=== PATIENT | female | born 1965 | race Caucasian/White ===

== ENCOUNTER 2020-12-28 17:53 | Emergency (ER) | payer MEDICAID ==
[2020-12-28 18:13] VITALS: BP 153/79; PULSE 95; O2SAT 98
--- NOTE | 2020-12-28 19:04 | ERPHSYRPT ---
- History of Present Illness Time Seen by Provider: 12/28/20 18:15 Source: patient Exam Limitations: no limitations Patient Subjective Stated Complaint: R earache Triage Nursing Assessment: pt to ED c/o R earache x 4 days. reports pain radiates through R side neck and jaw. denies injury to area. very tender to palp. rates 4/10 at rest and up to 10/10 when eating/touching area. Physician History: Is a 55-year-old white female who presents with pain in the right mandible located about the angle been sore for 4 to 5 days she denies any fever chills or sweats she denies any actual ear pain the pain is burning throbbing she has extremely poor dentition and pulls her own teeth and it appears that she has few teeth left. Timing/Duration: abrupt onset Severity: moderate ENT Location: mouth, dental Prearrival Treatment: no prearrival treatment Modifying Factors: Improves With: nothing Associated Symptoms: denies symptoms Hx Tetanus, Diphtheria Vaccination/Date Given: Yes Hx Influenza Vaccination/Date Given: Yes Hx Pneumococcal Vaccination/Date Given: No Immunizations Up to Date: Yes Travel Risk - International Travel Have you traveled outside of the country in past 3 weeks: No - Coronavirus Screening Are you exhibiting any of the following symptoms?: No Close contact with a COVID-19 positive Pt in past 14-21 Days: No - Vaccine Status Have you recieved a Covid-19 vaccination: No - Review of Systems Constitutional: No Fever, No Chills Eyes: No Symptoms Ears, Nose, & Throat: No Symptoms, Loose Teeth, Other (Poor dentition) Respiratory: No Cough, No Dyspnea Cardiac: No Chest Pain, No Edema, No Syncope Abdominal/Gastrointestinal: No Abdominal Pain, No Nausea, No Vomiting, No Diarrhea Genitourinary Symptoms: No Dysuria Musculoskeletal: No Back Pain, No Neck Pain Skin: No Rash Neurological: No Dizziness, No Focal Weakness, No Sensory Changes Psychological: No Symptoms Endocrine: No Symptoms All Other Systems: Reviewed and Negative - Past Medical History Pertinent Past Medical History: Yes Other Medical History: 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 no problems since. - Past Surgical History Past Surgical History: Yes Gastrointestinal: Hernia Repair Female Surgical History: Section Other Surgical History: skin graph at - Social History Smoking Status: Current every day smoker How long have you smoked: years Exposure to second hand smoke: Yes Drug Use: none Patient Lives Alone: Yes - Female History Hx Now: No - Nursing Vital Signs Nursing Vital Signs: Initial Vital Signs Temperature 97.5 F 12/28/20 18:02 Pulse Rate 95 H 12/28/20 18:02 Respiratory Rate 20 12/28/20 18:02 Blood Pressure 153/79 12/28/20 18:02 O2 Sat by Pulse Oximetry 98 12/28/20 18:02 Pain Scale Pain Intensity 4 - Physical Exam General Appearance: mild distress, alert Eye Exam: bilateral eye: normal inspection, PERRL, EOMI Ear Exam: bilateral ear: auricle normal, canal normal, TM normal Nasal Exam: normal inspection Throat Exam: pharynx normal, dental tenderness, mandibular swelling (angle of the right side of the mandible), moist mucus membranes, No tonsillar exudate Neck Exam: supple Cardiovascular/Respiratory Exam: normal breath sounds, regular rate/rhythm Abdominal Exam: non-tender, soft Neurologic Exam: alert, oriented x 3, sensation nml, No motor deficits Skin Exam: normal color, warm, dry SpO2 Interpretation: normal SpO2: 98 O2 Delivery: Room Air - Radiology Exams Other X-ray Interpretation: Interpreted by me, Other (Mandibular x-ray showed retained dental roots few teeth and what appears to be lucencies that could be a bscesses.) Ordered Tests: Active Orders 24 hr Category Date Time Status MANDIBLE (MINIMUM 4 VIEWS) Stat Exams 12/28/20 18:55 Taken - Progress Progress: unchanged - Departure Departure Disposition: Home Clinical Impression: Dental abscess Condition: Stable Critical Care Time: No Referrals: DOCTOR,NO FAMILY [Primary Care Provider] - Instructions: Dental Pain (DC) Prescriptions: clindamycin HCL [Cleocin HCl] 300 mg PO TID 7 Days #21 capsule
--- NOTE | 2020-12-29 10:11 | XRAY ---
Exam: 4 view mandible series from 12/28/2020. Comparison: None. Indication: Nose piercing. Findings: 5 images of the mandible were obtained including oblique images and Ez images with varying angulation. I see no acute fracture or bone destructive process within the mandible. A round metallic piercing is seen on the right adjacent to the nose. Many of the patient's teeth are missing. Significant dental and periodontal disease is suspected. The zygomatic arches appear grossly intact. The temporomandibular joint spaces appear essentially unremarkable. Impression: 1. No acute mandible fracture or other significant mandible lesion is seen. 2. Many teeth are missing, and I suspect significant dental and periodontal disease. Correlate clinically. 3. An apparent nasal piercing is seen on the right.
== END 2020-12-28 19:08 | disposition home or self-care (01) ==
LOC: ED 17:53
DX: K04.7 Periapical abscess without sinus (principal)
CPT/HCPCS: 70110; 99283

== ENCOUNTER 2021-01-05 11:03 | Emergency (ER) | payer MEDICAID ==
[2021-01-05 11:33] VITALS: PULSE 80; O2SAT 98
--- NOTE | 2021-01-05 11:53 | ERPHSYRPT ---
- History of Present Illness Time Seen by Provider: 01/05/21 11:35 Source: patient Exam Limitations: no limitations Patient Subjective Stated Complaint: PT states "I was here in the er about 8 days ago and they took x rays and gave me antibiotics saying it was bacterial in fection and I took it for the 7 days and it did absolutely nothing." Triage Nursing Assessment: Pt presented alert and oriented X 3, skin pwd. Pt has red skin under her right ear, tenderness to her right jaw. Physician History: Patient is a 55-year-old female presents to our ED with complaints of ear pain. Patient was in our emergency department about 8 days ago. Patient was treated with antibiotics. Patient states that her ear pain has not improved. Patient seems frustrated. Patient states pain is worse when she puts something in her mouth. However patient states that she is able to chew without any discomfort. Patient has severe carious teeth. No trauma no fever. Patient believes the pain is coming from her ear. Patient area exam is essentially nonremarkable. Will refer patient to ENT. Timing/Duration: week(s) Severity: moderate Modifying Factors: Improves With: other (Patient states symptoms worse when she puts food in her mouth.) Associated Symptoms: No nausea, No vomiting, No abdominal pain, No shortness of breath, No heartburn, No diaphoresis, No cough, No chills, No chest pain, No fever, No headaches, No loss of appetite, No syncope, No seizure Allergies/Adverse Reactions: No Known Drug Allergies Allergy (Verified 01/05/21 11:33) Home Medications: No Reportable Medications [No Reported Medications] 01/05/21 [History] Hx Tetanus, Diphtheria Vaccination/Date Given: Yes Hx Influenza Vaccination/Date Given: No Hx Pneumococcal Vaccination/Date Given: No Immunizations Up to Date: Yes Travel Risk - International Travel Have you traveled outside of the country in past 3 weeks: No - Coronavirus Screening Are you exhibiting any of the following symptoms?: No Close contact with a COVID-19 positive Pt in past 14-21 Days: No - Vaccine Status Have you recieved a Covid-19 vaccination: No - Review of Systems Constitutional: No Symptoms, No Fever, No Chills Eyes: No Symptoms Ears, Nose, & Throat: No Symptoms Respiratory: No Symptoms, No Cough, No Dyspnea Cardiac: No Symptoms, No Chest Pain, No Edema, No Syncope Abdominal/Gastrointestinal: No Symptoms, No Abdominal Pain, No Nausea, No Vomiting, No Diarrhea Genitourinary Symptoms: No Symptoms, No Dysuria Musculoskeletal: No Symptoms, No Back Pain, No Neck Pain Skin: No Symptoms, No Rash Neurological: No Symptoms, No Dizziness, No Focal Weakness, No Sensory Changes Psychological: No Symptoms Endocrine: No Symptoms Hematologic/Lymphatic: No Symptoms Immunological/Allergic: No Symptoms All Other Systems: Reviewed and Negative - Past Medical History Pertinent Past Medical History: Yes Other Medical History: 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 no problems since. - Past Surgical History Past Surgical History: Yes Gastrointestinal: Hernia Repair Female Surgical History: Section Other Surgical History: skin graph at - Social History Smoking Status: Current every day smoker How long have you smoked: years Exposure to second hand smoke: Yes Drug Use: none Patient Lives Alone: No - Female History Hx Now: No - Nursing Vital Signs Nursing Vital Signs: Initial Vital Signs Temperature 97.5 F 01/05/21 11:28 Pulse Rate 80 01/05/21 11:28 Respiratory Rate 20 01/05/21 11:28 Blood Pressure 173/90 01/05/21 11:28 O2 Sat by Pulse Oximetry 98 01/05/21 11:28 Pain Scale Pain Intensity [Right Jaw] 8 Pain Intensity 8 - Physical Exam General Appearance: no apparent distress, alert Eye Exam: PERRL/EOMI, eyes nml inspection Ears, Nose, Throat Exam: normal ENT inspection, TMs normal, pharynx normal, moist mucous membranes, other (Patient has some tenderness at the base of her right ear near the angle of the mandible.) Neck Exam: normal inspection, non-tender, supple, full range of motion Respiratory Exam: normal breath sounds, lungs clear, No respiratory distress Cardiovascular Exam: regular rate/rhythm, normal heart sounds, normal peripheral pulses Gastrointestinal/Abdomen Exam: soft, normal bowel sounds, No tenderness, No mass Back Exam: normal inspection, normal range of motion, No CVA tenderness, No vertebral tenderness Extremity Exam: normal inspection, normal range of motion, pelvis stable Neurologic Exam: alert, oriented x 3, cooperative, normal mood/affect, nml cerebellar function, nml station & gait, sensation nml, No motor deficits Skin Exam: normal color, warm, dry, No rash Lymphatic Exam: No adenopathy SpO2 Interpretation: normal SpO2: 98 O2 Delivery: Room Air - Course Nursing assessment & vital signs reviewed: Yes - Progress Progress: improved Progress Note: We will refer patient to ENT for further evaluation and treatment. Patient received Tylenol for pain control. 01/05/21 12:01 01/05/21 12:03 Counseled pt/family regarding: smoking cessation - Departure Departure Disposition: Home Clinical Impression: Ear pain, right Condition: Stable Critical Care Time: No Referrals: DOCTOR,NO FAMILY [Primary Care Provider] - NANCY MARRUFO MD [ACTIVE STAFF] - Additional Instructions: Discharge/Care Plan BOOKER JC was seen on 01/05/21 in the Emergency Room. The patient was counseled regarding Diagnosis,Lab results, Imaging studies, need for follow up and when to return to the Emergency Room. Prescriptions given: Discharge Note I have spoken with the patient and/or caregivers. I have explained the patient's condition, diagnosis and treatment plan based on the information available to me at this time. I have answered the patient's and/or caregiver's questions and addressed any concerns. The patient and/or caregivers have as good understanding of the patient's diagnosis, condition and treatment plan as can be expected at this point. The vital signs have been stable. The patient's condition is stable and appropriate for discharge from the emergency department. The patient will pursue further outpatient evaluation with the primary care physician or other designated or consulting physician as outlined in the discharge instructions. The patient and/or caregivers are agreeable to this plan of care and follow-up instructions have been explained in detail. The patient and/or caregivers have received these instruction. The patient/and or caregivers are aware that any significant change in condition or worsening of symptoms should prompt an immediate return to this or the closest emergency department or call 911.
[2021-01-05] MEDS ORDERED: TYLENOL 325 MG PO ONE (12:03)
[2021-01-05] MEDS ORDERED: TYLENOL 325 MG ONE (12:12)
[2021-01-05 12:29] VITALS: BP 168/70
== END 2021-01-05 12:55 | disposition home or self-care (01) ==
LOC: ED 11:03
DX: H92.01 Otalgia, right ear (principal)
CPT/HCPCS: 99283; A9270-GY

== ENCOUNTER 2023-07-05 19:44 | Emergency (ER) | payer OTHER | END 2023-07-05 20:27 | disposition left against medical advice (07) | LOC: ED 19:44 | DX: Z53.21 Procedure and treatment not carried out due to patient leaving prior to being seen by health care provider (principal) ==

== ENCOUNTER 2023-07-06 20:28 | Emergency (ER) | payer OTHER ==
[2023-07-06 21:15] VITALS: O2SAT 96
--- NOTE | 2023-07-06 21:15 | ERPHSYRPT ---
- History of Present Illness Time Seen by Provider: 07/06/23 21:11 Source: patient Exam Limitations: no limitations Physician History: Patient is a 57-year-old female presents to our ED for evaluation of a posterior neck, pedunculated mass that has been there "her whole life". The mass has recently began to change in color and sensitivity. Patient states that it is draining serosanguineous fluid. The area involvement is localized. No signs of infection. No fever. Patient has no other symptomology. Patient is a smoker. Patient that she is otherwise healthy. She voices no other complaints or concerns at this time. Portions of this note were created with voice recognition technology. There may be grammatical, spelling, punctuation or sound alike errors Timing/Duration: today Severity: mild Modifying Factors: Improves With: nothing Associated Symptoms: denies symptoms Allergies/Adverse Reactions: No Known Drug Allergies Allergy (Verified 07/06/23 20:56) Home Medications: No Reportable Medications [No Reported Medications] 01/05/21 [History] Hx Tetanus, Diphtheria Vaccination/Date Given: Yes Hx Influenza Vaccination/Date Given: No Hx Pneumococcal Vaccination/Date Given: No Travel Risk - Vaccine Status Have you recieved a Covid-19 vaccination: No - Review of Systems Constitutional: No Symptoms, No Fever, No Chills Eyes: No Symptoms Ears, Nose, & Throat: No Symptoms Respiratory: No Symptoms, No Cough, No Dyspnea Cardiac: No Symptoms, No Chest Pain, No Edema, No Syncope Abdominal/Gastrointestinal: No Symptoms, No Abdominal Pain, No Nausea, No Vomiting, No Diarrhea Genitourinary Symptoms: No Symptoms, No Dysuria Musculoskeletal: No Symptoms, No Back Pain, No Neck Pain Skin: No Symptoms, No Rash Neurological: No Symptoms, No Dizziness, No Focal Weakness, No Sensory Changes Psychological: No Symptoms Endocrine: No Symptoms Hematologic/Lymphatic: No Symptoms Immunological/Allergic: No Symptoms All Other Systems: Reviewed and Negative - Past Medical History Pertinent Past Medical History: Yes Other Medical History: 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 no problems since. - Past Surgical History Past Surgical History: Yes Gastrointestinal: Hernia Repair Female Surgical History: Section Other Surgical History: skin graph at - Social History Smoking Status: Current every day smoker How long have you smoked: years Exposure to second hand smoke: Yes Drug Use: none Patient Lives Alone: No - Physical Exam General Appearance: no apparent distress, alert Eye Exam: PERRL/EOMI, eyes nml inspection Ears, Nose, Throat Exam: normal ENT inspection, moist mucous membranes Neck Exam: normal inspection, non-tender, supple, full range of motion Respiratory Exam: normal breath sounds, lungs clear, airway intact, No respiratory distress Cardiovascular Exam: regular rate/rhythm, normal heart sounds, normal peripheral pulses Gastrointestinal/Abdomen Exam: soft, normal bowel sounds, No tenderness, No mass Back Exam: normal inspection, normal range of motion, No CVA tenderness, No vertebral tenderness Extremity Exam: normal inspection, normal range of motion, pelvis stable Neurologic Exam: alert, oriented x 3, cooperative, normal mood/affect, sensation nml, No motor deficits Skin Exam: normal color, warm, dry, No rash Lymphatic Exam: No adenopathy SpO2 Interpretation: normal SpO2: 96 O2 Delivery: Room Air - Course Nursing assessment & vital signs reviewed: Yes - Progress Progress: improved Progress Note: 57-year-old female presents to our ED with a chronic pedunculated mass hanging off of the skin of the posterior neck. Patient reports acute changes The mass is approximately 1 cm in diameter. It is cauliflower-like. No signs of infection. This will require a dermatologic or plastic surgery evaluation. Likely resection with subsequent pathology evaluation of the mass. Patient referred to dermatology clinic for further evaluation and treatment. No indication for further work-up at this time. Portions of this note were created with voice recognition technology. There may be grammatical, spelling, punctuation or sound alike errors Complexity of problems addressed is low acute uncomplicated No critical care time Complexity of data reviewed and analyzed is none. No specialized testing ordered. Diagnosis made based on history and physical exam Risk of complication and a risk of morbidity/mortality of patient management is low Vital stable. Time spent to discharge patient is approximately 10 minutes. Plan of care established via shared decision making. No social determinants of health present impede follow-up. Patient referred to dermatology clinic for follow-up Portions of this note were created with voice recognition technology. There may be grammatical, spelling, punctuation or sound alike errors 07/06/23 21:21 Counseled pt/family regarding: diagnosis, need for follow-up - Departure Departure Disposition: Home Clinical Impression: Skin lesion Condition: Stable Critical Care Time: No Referrals: CECILIA CRUZ NP [Primary Care Provider] - Follow up/PCP as directed SPIKE BISHOP NP [NON-STAFF PHY W/O PRIVILEGES] - Follow up/PCP as directed Additional Instructions: Discharge/Care Plan BOOKER JC was seen on 07/06/23 in the Emergency Room. The patient was counseled regarding Diagnosis,Lab results, Imaging studies, need for follow up and when to return to the Emergency Room. Prescriptions given: Discharge Note I have spoken with the patient and/or caregivers. I have explained the patient's condition, diagnosis and treatment plan based on the information available to me at this time. I have answered the patient's and/or caregiver's questions and addressed any concerns. The patient and/or caregivers have as good understanding of the patient's diagnosis, condition and treatment plan as can be expected at this point. The vital signs have been stable. The patient's condition is stable and appropriate for discharge from the emergency department. The patient will pursue further outpatient evaluation with the primary care physician or other designated or consulting physician as outlined in the discharge instructions. The patient and/or caregivers are agreeable to this plan of care and follow-up instructions have been explained in detail. The patient and/or caregivers have received these instruction. The patient/and or caregivers are aware that any significant change in condition or worsening of symptoms should prompt an immediate return to this or the closest emergency department or call 911.
[2023-07-06 21:18] VITALS: RESP 18; TEMP 97.3
[2023-07-06 21:19] VITALS: BP 140/71; PULSE 92
== END 2023-07-06 21:24 | disposition home or self-care (01) ==
LOC: ED 20:28
DX: L98.9 Disorder of the skin and subcutaneous tissue, unspecified (principal); R22.1 Localized swelling, mass and lump, neck; Z28.310 Unvaccinated for COVID-19; Z72.0 Tobacco use
CPT/HCPCS: 99281